=== PATIENT | female | born 1970 | race Caucasian/White ===

== ENCOUNTER → 2016-11-19 | Outpatient (CLI) | payer BC ==
--- NOTE | 2016-11-19 13:15 | PCVCIMAG ---
APPROVED REPORT Exam: Stress Echocardiogram Indication: Hypertension, Abnormal EKG Patient Location: Echo lab Stress Nurse: Whit Benson RN Status: routine Ht: 5 ft 2 in HR: 76 bpm Rhythm: NSR Medical History Medical History: HTN Cardiac Risk Factors: ABN EKG Pretest Chest Pain Characteristics: No chest pain Exercise History: Indeterminate Procedure The patient underwent an Exercise Stress Test using the Trina Protocol. Blood pressure, heart rate, and EKG were monitored. An Echocardiogram was performed by tire service technician in four stages in quad fashion. At peak stress, four selected images were obtained and placed side by side with resting images for comparison. Stress Test Details Stress Test: Exercise stress testing was performed using a Trina protocol. HR Resting HR: 76 bpmMax Heart Rate (APMHR): 172 bpm Max HR Achieved: 169 bpmTarget HR (85% APMHR): 146 bpm % of APMHR: 98 Recovery HR: 102 bpm HR response to stress: Normal HR response to stress BP Resting BP: 128/80 mmHg Max BP: 158/80 mmHg Recovery BP: 120/78 mmHg ECG Resting ECG: Sinus Rhythm Stress ECG: Sinus Rhythm ST Change: Normal Maximum ST Deviation: .65 mm Arrhythmia: None Recovery ECG: Sinus Rhythm Recovery ST Change: Normal Recovery ST Deviation: 0.4 mm Recovery Arrhythmia: None Clinical Reason for Termination: Maximal effort Stress Symptoms: NONE Exercise duration: 10 min 24 sec Highest Stage Achieved: Stage 4: 4.2 mph at 16% grade. Exercise capacity: 13.4 METs Overall Exercise Capacity for Age: Good Angina Score: None Stress ECG Conclusion The patient exercised according to the TRINA PROTOCOL for 10:24minutes, achieving a work level of Max. METS: 13.4 . The resting heart rate of 76 bpm [place] to a maximal heart rate of 169 bpm. This value represents 98% of the maximal, age-predicted heart rate. The resting blood pressure of 128/80 mmHg, britney to a maximum blood pressure of 158/80 mmHg. The exercise test was stopped due to fatigue. [place] Treadmill Score is 6.8 which is Low risk. Pre-Stress Echo The resting Echocardiogram showed normal left ventricular contractility with an estimated Ejection Fraction of about 55-60%. Normal wall motion in all segments on baseline images. Post-Stress Echo The stress Echocardiogram showed normal left ventricular contractility with an estimated Ejection Fraction of about 65-70%. Normal augmentation of wall motion in all segments on post stress images. Clinical No clinical or ECG evidence for ischemia. Conclusion Clinical Response: Non-ischemic Exercise Capacity: Superior Stress ECG Response: Non-ischemic Stress Echo Images: Non-ischemic 1. LOW RISK STUDY No prior study available for comparison. <Conclusion> 1. LOW RISK STUDY
== END | disposition home or self-care (01) ==
LOC: PCVCIMAG 11:12
PROVIDERS: ATTEND Internal Medicine
DX: I10 Essential (primary) hypertension (principal); R94.31 Abnormal electrocardiogram [ECG] [EKG]; E78.5 Hyperlipidemia, unspecified
CPT/HCPCS: 93325; 93351